=== PATIENT | male | born 1945 | race Caucasian/White ===

== ENCOUNTER → 2017-06-26 | Day surgery (SDC) | payer MEDICARE, OTHER ==
[~2017-06-26] MED LIST: Propofol 200 MG/20 ML SDV IV ONE
[2017-06-26] MEDS: Lactated Ringers 1,000 ML IV SCH (08:46)
[2017-06-26 10:32] VITALS: BP 126/75
--- NOTE | 2017-06-26 13:50 | OR ---
DATE OF OPERATION: 06/26/2017 PREOPERATIVE DIAGNOSIS: IRON-DEFICIENCY ANEMIA. POSTOPERATIVE DIAGNOSIS: IRON-DEFICIENCY ANEMIA. SURGEON: Isai Haley MD PROCEDURE: COLONOSCOPY WITH POLYP REMOVAL X4. ANESTHESIA: SALON COORDINATOR. COMPLICATIONS: None. SPECIMEN: Hyperplastic polyps x4, see op note. FINDINGS: 1. Full-length colonoscopy. 2. Moderate sigmoid diverticulosis. 3. Four small hyperplastic polyps. RECOMMENDATIONS: Medical followup in the next two weeks for discussion of path report and further workup. INDICATIONS: Mr. Camara has been having some issues with pancytopenia and was found to be iron deficient. We elected to proceed with colonoscopy. DESCRIPTION OF PROCEDURE: The patient was prepped and draped, placed in the left lateral decubitus position. A lubricated Olympus colonoscope was inserted and easily advanced to the cecum. Direct visualization of the ileocecal valve and appendiceal orifice was accomplished. The bowel prep was adequate. Upon withdrawal of the scope, right in the cecal pouch, the patient had a very small sessile polyp likely hyperplastic, probably measuring 3 to 4 mm, removed in its entirety with the cold forceps. The rest of the ascending colon for the most part appeared benign. He had 2 more small hyperplastic-appearing polyps, flat sessile lesions right at the hepatic flexure, also removed with cold forceps biopsies x2 each. The rest of the transverse colon was benign. Just past the splenic flexure, the patient had a fourth and final small hyperplastic appearing polyp, again very small and sessile, removed with two forceps biopsies. Throughout the sigmoid colon, the patient had pretty moderate diverticular disease without any inflammatory change or bleeding sites. No vascular abnormalities or signs of colitis. No further polyps, masses, ulcerations were seen. The rectal vault was benign. Retroflexion showed no perianal lesions. Air was suctioned. Scope removed without complication. VERONICA/NADINE /[id number]
== END ==
LOC: CC.SDS 08:35
PROVIDERS: ATTEND Family Medicine
DX: D12.3 Benign neoplasm of transverse colon (principal); K63.5 Polyp of colon; K57.30 Diverticulosis of large intestine without perforation or abscess without bleeding; D50.9 Iron deficiency anemia, unspecified; N40.0 Benign prostatic hyperplasia without lower urinary tract symptoms; R79.89 Other specified abnormal findings of blood chemistry; E78.00 Pure hypercholesterolemia, unspecified; Z79.82 Long term (current) use of aspirin; Z79.899 Other long term (current) drug therapy; Z98.890 Other specified postprocedural states
CPT/HCPCS: J2704; J7120

== ENCOUNTER 2020-10-21 05:55 | Emergency (ER) | payer MEDICARE, OTHER ==
[2020-10-21 06:07] VITALS: BP 137/67; PULSE 74
--- NOTE | 2020-10-21 06:54 | EDM.PDOC ---
ED HPI GENERAL MEDICAL PROBLEM - General Chief Complaint: Genitourinary Problem Stated Complaint: difficulty urinating Time Seen by Provider: 10/21/20 06:34 Source of Information: Reports: Patient History Limitations: Reports: No Limitations - History of Present Illness INITIAL COMMENTS - FREE TEXT/NARRATIVE: 74 year old male presents with urinary retention. States has history of enlarged prostate and does have issues with retention but normally eventually empty out. He has had the urge to void at 2300 but has been unable to go. He states he often gets up and walks around and it will eventually empty. Has never had to come in for assistance like this. Denies any abdominal pain. No fevers. No nausea or vomiting. No constipation. Hasn't noted any blood in his urine. No burning with urination. Has been on Flomax for some time now. PMH of hyperlipidemia, BPH. Onset: Gradual Duration: Hour(s):, Constant Location: Reports: Abdomen Quality: Reports: Throbbing Severity: Moderate Improves with: Reports: None Associated Symptoms: Reports: No Other Symptoms Groin Pain Score (Numeric/FACES): 9 - Related Data Allergies Allergy/AdvReac Type Severity Reaction Status Date / Time No Known Allergies Allergy Verified 10/21/20 06:07 Home Meds: Home Meds Aspirin 81 mg PO DAILY 10/12/15 [History] Ergocalciferol (Vitamin D2) [Vitamin D] 400 unit PO DAILY 10/12/15 [History] Glucosamine [Glucosamine Sulfate] 500 mg PO DAILY 10/12/15 [History] Omeprazole Magnesium [Prilosec Otc] 20 mg PO WEEKLY 10/12/15 [History] Tamsulosin [Flomax] 0.8 mg PO BEDTIME 10/12/15 [History] Simvastatin 40 mg PO BEDTIME 10/15/15 [History] Ferrous Sulfate 325 mg PO DAILY 08/11/17 [History] Past Medical History HEENT History: Reports: Cataract, Impaired Vision Cardiovascular History: Reports: High Cholesterol Genitourinary History: Reports: Prostate Disorder - Past Surgical History HEENT Surgical History: Reports: Cataract Surgery Musculoskeletal Surgical History: Reports: Hip Replacement Other Musculoskeletal Surgeries/Procedures:: bilateral hip replacement Social & Family History - Tobacco Use Tobacco Use Status *Q: Never Tobacco User - Caffeine Use Caffeine Use: Reports: Coffee - Recreational Drug Use Recreational Drug Use: No ED ROS GENERAL - Review of Systems Review Of Systems: See Below Constitutional: Denies: Fever, Chills, Malaise, Weakness HEENT: Reports: No Symptoms Respiratory: Denies: Shortness of Breath, Cough Cardiovascular: Denies: Chest Pain, Edema, Lightheadedness Endocrine: Denies: Fatigue GI/Abdominal: Denies: Abdominal Pain, Constipation, Diarrhea, Nausea, Vomiting : Reports: Urinary Retention Musculoskeletal: Reports: No Symptoms Skin: Reports: No Symptoms Neurological: Reports: No Symptoms ED EXAM, RENAL/ - Physical Exam Exam: See Below Exam Limited By: No Limitations General Appearance: Alert, WD/WN, No Apparent Distress Head: Normocephalic Neck: Normal Inspection, Supple, Non-Tender Respiratory/Chest: No Respiratory Distress, Lungs Clear, Normal Breath Sounds Cardiovascular: Regular Rate, Rhythm GI/Abdominal: Normal Bowel Sounds, Soft, Non-Tender Extremities: Normal Inspection, No Pedal Edema Neurological: Alert, Oriented Skin Exam: Warm, Dry Course - Vital Signs Last Recorded V/S: Last Vital Signs Temp 98.2 F 10/21/20 06:05 Pulse 74 10/21/20 06:05 Resp 16 10/21/20 06:05 BP 137/67 10/21/20 06:05 Pulse Ox 98 10/21/20 06:05 - Orders/Labs/Meds Orders: Active Orders 24 hr Category Date Time Status Urinary Catheter Assessment [RC] ASDIRECTED Care 10/21/20 06:15 Active Urinary Catheter Insertion [Insert Urinary Catheter] [ Care 10/21/20 06:15 Ordered OM.PC] Q24H Labs: Laboratory Tests 10/21/20 Range/Units 06:15 Urine Color Light yellow (YELLOW) Urine Appearance Clear (CLEAR) Urine pH 7.0 (4.5-8.0) Ur Specific [place] 1.020 (1.003-1.020) Urine Protein Negative (NEGATIVE) mg/dL Urine Glucose (UA) Negative (NEGATIVE) mg/dL Urine Ketones Negative (NEGATIVE) mg/dL Urine Occult Blood Moderate H (NEGATIVE) Urine Nitrite Negative (NEGATIVE) Urine Bilirubin Negative (NEGATIVE) Urine Urobilinogen 0.2 (0.2-1.0) EU/dL Ur Leukocyte Esterase Negative (NEGATIVE) Urine RBC 5-10 H (0-5) /HPF Urine WBC Not seen (0-5) /HPF - Re-Assessments/Exams Free Text/Narrative Re-Assessment/Exam: 10/21/20 Catheter placed with initial 500 ml return until clamped, overall 1000 ml out. Will discontinue catheter, push fluids. Return if recurring issue and catheter would again be placed and left in. Discuss with Dr. Haley at his physical next week about additional meds or surgery if needed. Departure - Departure Time of Disposition: 06:52 Disposition: Home, Self-Care 01 Condition: Good Clinical Impression: Retention of urine - Discharge Information *PRESCRIPTION DRUG MONITORING PROGRAM REVIEWED*: No *COPY OF PRESCRIPTION DRUG MONITORING REPORT IN PATIENT DANIE: No Instructions: Acute Urinary Retention, Male, [id number] Referrals: Isai Haley MD [Primary Care Provider] - Forms: ED Department Discharge Additional Instructions: 1. Push fluids 2. Decrease caffeine 3. Return if recurring urinary retention and may need to have indwelling catheter placed 4. Discuss with Dr. Haley at your physical, may need to add medication or refer to urology for debulking of the prostate 5. Call with any questions or concerns. Sepsis Event Note (ED) - Evaluation Sepsis Screening Result: No Definite Risk - Focused Exam Vital Signs: Vital Signs Temp Pulse Resp BP Pulse Ox 10/21/20 06:05 98.2 F 74 16 137/67 98 - My Orders Last 24 Hours: My Active Orders 10/21/20 06:15 Urinary Catheter Assessment [RC] ASDIRECTED Urinary Catheter Insertion [Insert Urinary Catheter] [OM.PC] Q24H - Assessment/Plan Last 24 Hours: My Active Orders 10/21/20 06:15 Urinary Catheter Assessment [RC] ASDIRECTED Urinary Catheter Insertion [Insert Urinary Catheter] [OM.PC] Q24H
== END 2020-10-21 06:55 | disposition home or self-care (01) ==
LOC: CC.ED 05:55
DX: N40.1 Benign prostatic hyperplasia with lower urinary tract symptoms (principal); R33.8 Other retention of urine; E78.00 Pure hypercholesterolemia, unspecified; Z79.82 Long term (current) use of aspirin; Z79.899 Other long term (current) drug therapy
CPT/HCPCS: 51702; 81001; 99283; 99283-25

== ENCOUNTER → 2022-12-19 | Day surgery (SDC) | payer MEDICARE, OTHER ==
[~2022-12-19] MED LIST changes: +Ketamine 200 MG/20 ML MDV ONE; +Lactated Ringers 1,000 ML IV SCH; +Lidocaine 2% 20 ML MDV ONE; +Phenylephrine 1% 10 MG/ML SDV ONE; -Propofol 200 MG/20 ML SDV IV ONE; +Propofol 200 MG/20 ML SDV ONE; +fentaNYL 50 MCG/ML SDV ONE
[2022-12-19 12:35] VITALS: PULSE 68
[2022-12-19 12:36] VITALS: BP 126/64
== END ==
LOC: CC.SDS 07:29
PROVIDERS: ATTEND Family Medicine
DX: Z12.11 Encounter for screening for malignant neoplasm of colon (principal); K57.30 Diverticulosis of large intestine without perforation or abscess without bleeding; D12.3 Benign neoplasm of transverse colon; K21.00 Gastro-esophageal reflux disease with esophagitis, without bleeding; K22.10 Ulcer of esophagus without bleeding; K29.50 Unspecified chronic gastritis without bleeding; K31.A0 Gastric intestinal metaplasia, unspecified; K31.89 Other diseases of stomach and duodenum; N40.0 Benign prostatic hyperplasia without lower urinary tract symptoms; R97.20 Elevated prostate specific antigen [PSA]; E78.00 Pure hypercholesterolemia, unspecified; M16.9 Osteoarthritis of hip, unspecified; Z79.899 Other long term (current) drug therapy
CPT/HCPCS: 00813; 87081; 99100; J2371; J2704; J3010; J3490; J7120

== ENCOUNTER 2023-08-07 08:38 | Day surgery (SDC) | payer MEDICARE, OTHER ==
[2023-08-07] MEDS: Lactated Ringers 1,000 ML IV SCH (08:57)
[2023-08-07] MEDS ORDERED: Ketamine 200 MG/20 ML MDV ONE (09:55)
[2023-08-07] MEDS ORDERED: Lidocaine 2% 20 ML MDV ONE (09:55)
[2023-08-07] MEDS ORDERED: Propofol 200 MG/20 ML SDV ONE (09:55)
[2023-08-07] MEDS ORDERED: fentaNYL 50 MCG/ML SDV ONE (09:55)
[2023-08-07 11:20] VITALS: PULSE 55
[2023-08-07 11:21] VITALS: BP 139/85
== END 2023-08-07 11:20 | disposition home or self-care (01) ==
LOC: CC.SDS 08:38
PROVIDERS: ATTEND Family Medicine
DX: K22.70 Barrett's esophagus without dysplasia (principal); K21.00 Gastro-esophageal reflux disease with esophagitis, without bleeding; K44.9 Diaphragmatic hernia without obstruction or gangrene; E78.00 Pure hypercholesterolemia, unspecified; Z79.899 Other long term (current) drug therapy
CPT/HCPCS: 00731; 87081; 88305; 99100; J2704; J3010; J3490; J7120